=== PATIENT | male | born 1985 | race Caucasian/White ===

== ENCOUNTER → 2020-08-21 10:12 | Outpatient (CLI) | payer OTHER, SELFPAY ==
--- NOTE | 2020-08-21 | DI.MRI.S_ITS ---
PROCEDURE: MR LUMBAR SPINE WO CON INDICATIONS: Radiculopathy, lumbar region TECHNIQUE: Noncontrast sagittal T1 spin echo and T2 fast echo, sagittal STIR, axial T1 and T2 fast spin echo through the lumbar spine. In cases with scoliosis, additional coronal T2 fast spin echo may be performed. COMPARISON: None. FINDINGS: Image quality: Excellent. Alignment and Curvature: There is normal bony alignment. Bone Marrow: Marrow is of normal overall signal. No acute vertebral body compression fractures. Spinal Cord: Conus medullaris terminates at the L1 level. Visualized cord demonstrates normal signal and size. Incidental note made of a small lipoma of the filum terminale. Paraspinous Soft Tissues: No paravertebral masses. T12-L1: Normal appearance. L1-L2: Normal appearance. L2-L3: Normal appearance. L3-L4: Normal appearance. L4-L5: Loss of disc signal and height. Mild, diffuse disc bulge. Mild bilateral facet hypertrophy. No central stenosis. Mild right and [id number] left neural foraminal narrowing. Fissure noted in the posterior annulus. No neural compression. L5-S1: Normal appearance. IMPRESSION: 1. Moderate L4-L5 degenerative disc disease. 2. No central stenosis. 3. Mild right and [id number]-[id number] left L4-L5 neural foraminal narrowing. 4. No neural compression. 5. L4-L5 disc annulus fissure. Dictated by: Fay Heath MD, PhD on 08/23/2020 at 9:19 Approved by: Fay Heath MD, PhD on 08/23/2020 at 9:22
== END ==
PROVIDERS: PCP Physical Medicine & Rehabilitation; Referring Provider Physical Medicine & Rehabilitation; Visit Provider Physical Medicine & Rehabilitation
DX: M51.16 Intervertebral disc disorders with radiculopathy, lumbar region (principal); M48.061 Spinal stenosis, lumbar region without neurogenic claudication
CPT/HCPCS: 72148

== ENCOUNTER → 2023-06-11 15:47 | Outpatient (CLI) | payer OTHER, SELFPAY ==
--- NOTE | 2023-06-11 16:10 | DI.MRI.S_ITS ---
PROCEDURE: MR LUMBAR SPINE WO CON INDICATIONS: DORSALGIA TECHNIQUE: Noncontrast sagittal T1 spin echo and T2 fast echo, sagittal STIR, and T2 fast spin echo through the lumbar spine. In cases with scoliosis, additional coronal T2 fast spin echo may be performed. COMPARISON: [facility], MR, MR LUMBAR SPINE WO CON, 08/21/2020, 10:19. FINDINGS: Image quality: Excellent. Alignment and Curvature: There is normal bony alignment. Bone Marrow: Marrow is of normal overall signal. No acute vertebral body compression fractures. Spinal Cord: Conus medullaris terminates at the L1 level. Visualized cord demonstrates normal signal and size. Paraspinous Soft Tissues: No paravertebral masses. T12-L1: Normal appearance. L1-L2: Normal appearance. L2-L3: Normal appearance. L3-L4: Normal appearance. L4-L5: Disc desiccation, moderate disc height loss, broad-based disc bulge. Moderate to severe left neural foraminal narrowing, progressed from prior. Possible tiny annular fissure. No significant spinal canal narrowing. L5-S1: Normal appearance. IMPRESSION: Progressed degenerative changes at L4-5, now with moderate to severe left neural foraminal narrowing. Dictated by: Nathan Barry M.D. on 06/11/2023 at 16:39 Approved by: Nathan Barry M.D. on 06/11/2023 at 16:42
== END ==
PROVIDERS: PCP Physical Medicine & Rehabilitation; Referring Provider Nurse Practitioner Family; Visit Provider Nurse Practitioner Family
DX: M47.816 Spondylosis without myelopathy or radiculopathy, lumbar region (principal); M48.061 Spinal stenosis, lumbar region without neurogenic claudication; M54.9 Dorsalgia, unspecified
CPT/HCPCS: 72148

== ENCOUNTER → 2025-01-05 16:35 | Outpatient (CLI) | payer OTHER, SELFPAY ==
--- NOTE | 2025-01-05 16:37 | DI.MRI.S_ITS ---
PROCEDURE: MR LUMBAR SPINE WO CON INDICATIONS: chronic low back pain, lumbar disc disease TECHNIQUE: Noncontrast sagittal T1 spin echo and T2 fast echo, sagittal STIR, and T2 fast spin echo through the lumbar spine. In cases with scoliosis, additional coronal T2 fast spin echo may be performed. COMPARISON: [facility], MR, MR LUMBAR SPINE WO CON, 06/11/2023, 15:54. FINDINGS: Image quality: Excellent Mild retrolisthesis of L4 on L5. Vertebral body height of the lumbar spine are well maintained. Marrow signal is grossly normal for age. Multilevel disc bulge and disc desiccation, progressed at L5-S1. Conus terminates at the level of L1-2 and is unremarkable. Right neural foraminal stenosis: None. Left neural foraminal stenosis: Moderate at L4-5. Mild at L5-S1. Axial images: T12-L1: No central canal stenosis. L1-2: No central canal stenosis. L2-3: No central canal stenosis L3-4: Mild bilateral facet arthropathy. No central canal stenosis . L4-5: Disc bulge, asymmetric to the left. Mild bilateral facet arthropathy. No central canal stenosis. L5-S1: Disc bulge. Mild bilateral facet arthropathy. No central canal stenosis. Visualized sacrum is intact. No abdominal aortic aneurysm. IMPRESSION: 1. Multilevel degenerative changes, most pronounced at L4-5, where there is moderate left neural foraminal stenosis, progressed. 2. Progressed disc bulge at L5-S1. Dictated by: Marie Hanley M.D. on 01/05/2025 at 17:55 Approved by: Marie Hanley M.D. on 01/05/2025 at 18:03
== END ==
PROVIDERS: PCP Family Medicine; Referring Provider Family Medicine; Visit Provider Family Medicine
DX: M48.061 Spinal stenosis, lumbar region without neurogenic claudication (principal); M51.16 Intervertebral disc disorders with radiculopathy, lumbar region; M51.17 Intervertebral disc disorders with radiculopathy, lumbosacral region; M47.26 Other spondylosis with radiculopathy, lumbar region; M47.27 Other spondylosis with radiculopathy, lumbosacral region; G89.29 Other chronic pain
CPT/HCPCS: 72148